=== PATIENT | male | born 1980 | race Caucasian/White ===

== ENCOUNTER 2022-01-23 10:55 | Inpatient (IN) ==
[2022-01-23 11:02] VITALS: BMI 31.8
--- NOTE | 2022-01-23 11:13 | DR.GENAD ---
HPI Time Seen Time Seen by Provider: 01/23/22 11:12 PCP Primary Care Physician: DARIAN ALCALA Complaint/Symptoms Chief Complaint Doctors Comments: 41 y/o male presents for evaluation. Seen here 3 weeks ago and treated as an outpatient for pneumonia. [place] better briefly, but has been ill since. + cough, productive of sputum. + muscle tightening. + w orsening dyspnea. + weakness. Has still been going to work. Symptoms worsened today. Chief Complaint:: PT STATES HE WAS HERE TWO WEEKS AGO AND HAD PNEUMONIA AND HASNT GOTTEN BETTER. PT STATES HIS MUSCLES TENSE UP, PT HAS BEEN COUGHING UP WHITE PHLEGM. Nurses notes reviewed Nurses Notes Review: Yes Source History Provided: Patient Mode of Arrival Mode of Arrival: Ambulatory Timing Onset of Chief Complaint: 01/23/22 PMH PMH Past Medical History: No Past Medical History: Hypertension Past Surgical History: Yes Surgical History: Cholecystectomy Family History History of Family Medical Conditions: No Family Medical History: Diabetes Mellitus and Hypertension Social History Alcohol Use: None Do you use any recreational Drugs:: No Lives With: Alone Lives Where: Home Infectious screening In the last 2 months have you had wt loss of >10#?: NO Have you had fever, night sweats or hemotysis?: No Have you traveled outside the country in the last 6 months?: No Isolation: Standard ROS Review of Systems Constitutional: Chills, Fever and Weakness Eyes: No Symptoms Reported ENTM: No Symptoms Reported Respiratoy: Productive Cough and Short of Breath Cardiovascular: No Symptoms Reported Gastrointestinal/Abdominal: No Symptoms Reported Genitourinary: No Symptoms Reported Neurological: No Symptoms Reported Musculoskeletal: Muscle Pain Integumentary: No Symptoms Reported Hematologic/Lymphatic: No Symptoms Reported Psychiatric: No Symptoms Reported All Other Systems: Reviewed and Negative PE Vital Signs Vitals: Temperature 99.3 F Pulse Rate 102 Respiratory Rate 18 Blood Pressure [Left Arm] 106/55 Blood Pressure 118/68 O2 Sat by Pulse Oximetry 94 General General Appearance: Alert and In No Apparent Distress Head Head Exam: Normal Inspection Eyes Eye exam: PERRL and EOMI ENT ENT Exam: Normal Oropharynx, Mucous Membranes Moist and TM's Normal Bilaterally Neck Neck Exam: Normal Inspection and Full ROM; negative Tenderness Respiratory Respiratory Exam: Normal Lung Sounds Bilat; negative Accessory Muscle Use or Respiratory Distress Cardiovascular Cardiovascular Exam: Regular Rate, Normal Rhythm, Tachycardia and Normal Heart Sounds Abdominal Exam Abdominal Exam: Normal Inspection, Normal Bowel Sounds and Soft; negative Tenderness Extremities Extremities Exam: Normal Inspection and Full ROM Neurologic Neurological Exam: Alert, Oriented X3 and CN II-XII Intact; negative Motor Sensory Deficit Skin Skin Exam: Warm and Dry COURSE Treatment Treatment: 41 y/o male, treated for pneumonia with doxycycline 3 weeks ago, now with worsening cough/dyspnea. + pulse ox in the upper 80's on RA. Better with N/C. W/u initiated. Pt given IV fluids. 1300- CXR with diffuse haziness of RLL, some increased LLL markings. Pt given IV Rocephin to start. WBC not elevated, labs overall acceptable. Will admit for further antibiotic treatment and O2 supplementation. Discussed with Dr Kent, accepts the admission. [facility]OR Labs Reviewed Laboratory Results Reviewed?: Yes Result Diagrams: 01/23/22 11:18 01/23/22 11:18 Laboratory: WBC 9.2 X10^3/uL (3.6-10.0) 01/23/22 11:18 RBC 5.60 X10^6/uL (4.7-6.0) 01/23/22 11:18 Hgb 16.3 g/dL (13.5-18.0) 01/23/22 11:18 Hct 47.2 % (42.0-54.0) 01/23/22 11:18 MCV 84.3 fL (80.0-100.0) 01/23/22 11:18 MCH 29.0 pg (27.0-34.0) 01/23/22 11:18 MCHC 34.4 g/dL (33.0-35.0) 01/23/22 11:18 RDW 13.7 % (11.6-16.5) 01/23/22 11:18 Plt Count 282 X10^3/uL (150.0-450.0) 01/23/22 11:18 MPV 7.9 fL (7.4-11.0) 01/23/22 11:18 Neut % (Auto) 86.3 % (42.0-75.0) H 01/23/22 11:18 Lymph % (Auto) 8.4 % (21.0-51.0) L 01/23/22 11:18 Robeson % (Auto) 4.5 % (0.0-13.0) 01/23/22 11:18 Eos % (Auto) 0.5 % (0.9-2.9) L 01/23/22 11:18 Baso % (Auto) 0.3 % (0.2-1.0) 01/23/22 11:18 Neut # (Auto) 8.0 x10^3/uL (2.2-4.8) H 01/23/22 11:18 Lymph # (Auto) 0.8 X10^3/uL (1.3-2.9) L 01/23/22 11:18 Robeson # (Auto) 0.4 x10^3/uL (0.3-0.8) 01/23/22 11:18 Eos # (Auto) 0.0 x10^3/uL (0.0-0.2) 01/23/22 11:18 Baso # (Auto) 0.0 X10^3/uL (0.0-0.1) 01/23/22 11:18 Absolute Nucleated RBC 0.0 /100WBC 01/23/22 11:18 Sample Site Lrad 01/23/22 11:20 ABG pH 7.420 (7.35-7.45) 01/23/22 11:20 ABG pCO2 45.0 mmHg (35.0-45.0) 01/23/22 11:20 ABG pO2 47.0 mmHg (80.0-100.0) L* 01/23/22 11:20 ABG HCO3 29.2 mmol/L (22-26) H 01/23/22 11:20 ABG O2 Saturation 83.0 % (90-100) L* 01/23/22 11:20 ABG Base Excess 4.1 mmol/L (-2.0-2.0) H 01/23/22 11:20 Tunde Test Pos 01/23/22 11:20 A-a Gradient 46.0 mmHg 01/23/22 11:20 FiO2 21.0 01/23/22 11:20 Blood Gas Comments Pt rafa well elj 01/23/22 11:20 Sodium 137 mmol/L (136-145) 01/23/22 11:18 Corrected Sodium 138 mmol/L (136-145) 01/23/22 11:18 Potassium 4.0 mmol/L (3.5-5.1) 01/23/22 11:18 Chloride 101 mmol/L (98-107) 01/23/22 11:18 Carbon Dioxide 30.3 mmol/L (21-32) 01/23/22 11:18 BUN 19 mg/dL (7-18) H 01/23/22 11:18 Creatinine 0.87 mg/dL (0.70-1.30) 01/23/22 11:18 Est GFR (MDRD) Af Amer > 60 (>60) 01/23/22 11:18 Est GFR (MDRD) Non-Af > 60 (>60) 01/23/22 11:18 Glucose 121 mg/dL (65-99) H 01/23/22 11:18 Lactic Acid 1.6 mmol/L (0.4-2.0) 01/23/22 11:18 Calcium 8.7 mg/dL (8.5-10.1) 01/23/22 11:18 Corrected Calcium TNP 01/23/22 11:18 Total Bilirubin 0.90 mg/dL (0.2-1.0) 01/23/22 11:18 AST 78 Units/L (15-37) H 01/23/22 11:18 ALT 214 Units/L (12-78) H 01/23/22 11:18 Alkaline Phosphatase 142 Units/L (46-116) H 01/23/22 11:18 Total Protein 7.8 g/dL (6.4-8.2) 01/23/22 11:18 Albumin 3.9 g/dL (3.4-5.0) 01/23/22 11:18 Globulin 3.9 g/dL (2.5-4.5) 01/23/22 11:18 Albumin/Globulin Ratio 1.0 Ratio (1.1-2.1) L 01/23/22 11:18 SARS-CoV-2 (PCR) Negative (NEGATIVE) 01/23/22 11:25 Influenza Type A (PCR) Negative (NEGATIVE) 01/23/22 11:25 Influenza Type B (PCR) Negative (NEGATIVE) 01/23/22 11:25 RSV (PCR) Negative (NEGATIVE) 01/23/22 11:25 Labs overall acceptable. XRAY XRAY Interpreted by: Both X-ray Results: + worsening infiltrate of RLL. Opioid Opioid Risk Tool Age (Cyrus box if 16-45): Yes History of Preadolescent Sexual Abuse: No Total: 1 Total Score Risk Category: Low Risk Copyright: Jj DELEON predicting aberrant behaviors Discharge Plan Diagnosis Discharge Problem: RLL pneumonia Discharge Plan Patient Disposition: 09 ADMITTED INPATIENT Condition: Stable Orders to Discharge Patient Discharge Orders: Transfer (Routine); Ordered 01/23/22 Ordered By: Justin Schultz
[2022-01-23] MEDS ORDERED: NS 1,000 ML IV 1,000 ML IV ONE (11:14)
[2022-01-23] MEDS ORDERED: NS 1,000 ML IV 1,000 ML ONE (11:16)
[2022-01-23 11:27] LABS: ABG BASE EXCESS 4.1 mmol/L (-2.0-2.0); ABG HCO3 29.2 mmol/L (22-26)
[2022-01-23 11:28] LABS: ABG ALLEN TEST POS
[2022-01-23 11:42] LABS: BASOPHILS % (AUTO) 0.3 % (0.2-1.0); EOSINOPHILS % (AUTO) 0.5 % (0.9-2.9); HEMATOCRIT 47.2 % (42.0-54.0); HEMOGLOBIN 16.3 g/dL (13.5-18.0); LYMPHOCYTES # (AUTO) 0.8 X10^3/uL (1.3-2.9); LYMPHOCYTES % (AUTO) 8.4 % (21.0-51.0); MEAN CORPUSCULAR HGB CONC 34.4 g/dL (33.0-35.0); MEAN CORPUSCULAR VOLUME 84.3 fL (80.0-100.0); MEAN PLATELET VOLUME 7.9 fL (7.4-11.0); MONOCYTES # (AUTO) 0.4 x10^3/uL (0.3-0.8); MONOCYTES % (AUTO) 4.5 % (0.0-13.0); NEUTROPHILS % (AUTO) 86.3 % (42.0-75.0); RED CELL DISTRIBUTION WIDTH 13.7 % (11.6-16.5); WHITE BLOOD COUNT 9.2 X10^3/uL (3.6-10.0)
[2022-01-23 11:54] LABS: ALANINE AMINOTRANSFERASE 214 Units/L (12-78); ALBUMIN 3.9 g/dL (3.4-5.0); ALKALINE PHOSPHATASE 142 Units/L (46-116); ASPARTATE AMINO TRANSFERASE 78 Units/L (15-37); BLOOD UREA NITROGEN 19 mg/dL (7-18); CALCIUM 8.7 mg/dL (8.5-10.1); CARBON DIOXIDE 30.3 mmol/L (21-32); CHLORIDE 101 mmol/L (98-107); COR NA(FOR HYPERGLY) 138 mmol/L (136-145); CREATININE 0.87 mg/dL (0.70-1.30); SODIUM 137 mmol/L (136-145); TOTAL PROTEIN 7.8 g/dL (6.4-8.2); eGFR NON BLACK RACES > 60 (>60)
[2022-01-23 11:58] LABS: LACTIC ACID 1.6 mmol/L (0.4-2.0)
[2022-01-23] MEDS ORDERED: ROCEPHIN 1 GRAM IV PREMIX 1 G/50 ML IV.SOLN. IV ONE (12:10)
[2022-01-23] MEDS ORDERED: NS 50 ML IV 50 ML IV ONE (12:13)
[2022-01-23] MEDS ORDERED: ROCEPHIN VIAL 1 GRAM ONE (12:13)
--- NOTE | 2022-01-23 12:28 | RAD ---
Chest AP portableIndication: Cough. Comparison recent right lower lung pneumoniaComparison January 02, 2022FINDINGSThere is no pneumothorax. Heart size is prominent. There is dense right lower lung opacity, similar to slightly worsened when compared to the prior. Patchy left lower lung opacity may be developing.IMPRESSIONSimilar to slightly worsened right lower lung opacity suggesting pneumonia. Developing left lung pneumonia not excluded. Follow-up to resolution to exclude underlying lesion.Electronically signed by: MAGALY GONZALES (Jan 23, 2022 12:27:08)
[2022-01-23] MEDS ORDERED: MORPHINE SULFATE INJ 4 MG IVP ONE (12:44)
[2022-01-23] MEDS ORDERED: MORPHINE SULFATE INJ 4 MG ONE (12:56)
[2022-01-23] MEDS: AVELOX IV 400 MG/250 ML BAG 400 MG/250 ML PIGGYBACK IV SCH (15:15)
[2022-01-23] MEDS: NEURONTIN CAP 300 MG PO SCH ×2 (15:15→21:23)
[2022-01-23] MEDS: ZOSYN VIAL 3.375 GRAMS 3.375 G in NS 100 ML IV 100 ML IV SCH ×2 (15:15→21:25)
[2022-01-23] MEDS ORDERED: TORADOL 60 MG VIAL IM ONE (15:28)
[2022-01-23] MEDS ORDERED: SALINE 3% 15 ML NEB TX NEB ONE (16:12)
[2022-01-23] MEDS ORDERED: SALINE 3% 15 ML NEB TX ONE (16:27)
[2022-01-23] MEDS ORDERED: DUONEB 0.5 MG/3 MG (3 mL) NEB ONE (16:27)
[2022-01-23] MEDS ORDERED: DUONEB 0.5 MG/3 MG (3 mL) NEB SCH (17:00)
[2022-01-23] MEDS: DUONEB 0.5 MG/3 MG (3 mL) NEB SCH ×2 (17:16→20:20)
[2022-01-23] MEDS: NORCO 5/325 MG TAB PO PRN (17:59)
[2022-01-23] MEDS ORDERED: PULMICORT NEB TX 0.5 MG NEB ONE (19:34)
[2022-01-23] MEDS: PULMICORT NEB TX 0.5 MG NEB SCH (20:20)
[2022-01-23] MEDS: COLACE CAP 100 MG PO PRN (21:21)
[2022-01-23] MEDS ORDERED: TORADOL 15 MG VIAL IVP PRN (22:00)
[2022-01-24] MEDS: NEURONTIN CAP 300 MG PO SCH ×3 (05:14→21:00)
[2022-01-24] MEDS: ZOSYN VIAL 3.375 GRAMS 3.375 G in NS 100 ML IV 100 ML IV SCH ×3 (05:14→21:00)
[2022-01-24 06:09] LABS: BASOPHILS % (AUTO) 0.6 % (0.2-1.0); EOSINOPHILS # (AUTO) 0.1 x10^3/uL (0.0-0.2); EOSINOPHILS % (AUTO) 1.9 % (0.9-2.9); HEMATOCRIT 36.8 % (42.0-54.0); LYMPHOCYTES # (AUTO) 2.1 X10^3/uL (1.3-2.9); LYMPHOCYTES % (AUTO) 29.3 % (21.0-51.0); MEAN CORPUSCULAR HEMOGLOBIN 28.5 pg (27.0-34.0); MEAN CORPUSCULAR HGB CONC 34.1 g/dL (33.0-35.0); MEAN CORPUSCULAR VOLUME 83.6 fL (80.0-100.0); MEAN PLATELET VOLUME 7.6 fL (7.4-11.0); MONOCYTES # (AUTO) 0.5 x10^3/uL (0.3-0.8); MONOCYTES % (AUTO) 6.5 % (0.0-13.0); NEUTROPHILS # (AUTO) 4.4 x10^3/uL (2.2-4.8); NEUTROPHILS % (AUTO) 61.7 % (42.0-75.0); WHITE BLOOD COUNT 7.1 X10^3/uL (3.6-10.0)
[2022-01-24 06:12] LABS: HEMOGLOBIN 12.6 g/dL (13.5-18.0)
[2022-01-24 06:19] LABS: ALANINE AMINOTRANSFERASE 236 Units/L (12-78); ALBUMIN 2.9 g/dL (3.4-5.0); ALKALINE PHOSPHATASE 109 Units/L (46-116); ASPARTATE AMINO TRANSFERASE 79 Units/L (15-37); BLOOD UREA NITROGEN 14 mg/dL (7-18); CALCIUM 8.1 mg/dL (8.5-10.1); CARBON DIOXIDE 27.1 mmol/L (21-32); CHLORIDE 106 mmol/L (98-107); CREATININE 0.81 mg/dL (0.70-1.30); SODIUM 140 mmol/L (136-145); TOTAL PROTEIN 5.9 g/dL (6.4-8.2); eGFR NON BLACK RACES > 60 (>60)
[2022-01-24] MEDS: NORCO 5/325 MG TAB PO PRN ×2 (07:50→18:19)
[2022-01-24] MEDS: PULMICORT NEB TX 0.5 MG NEB SCH ×2 (09:20→20:38)
[2022-01-24] MEDS: DUONEB 0.5 MG/3 MG (3 mL) NEB SCH ×4 (09:20→20:38)
[2022-01-24] MEDS ORDERED: NS 100 ML IV 100 ML ONE (09:24)
[2022-01-24] MEDS: AVELOX IV 400 MG/250 ML BAG 400 MG/250 ML PIGGYBACK IV SCH (09:37)
[2022-01-24] MEDS: CELEXA PO SCH (09:38)
[2022-01-24] MEDS ORDERED: K-RIDER 10 MEQ/NS 100 ML 10 MEQ/100 ML BAG IV PRN (14:12)
[2022-01-24] MEDS ORDERED: POTASSIUM CHL 40 MEQ/NS 0.45% 500 ML IV PRN (14:12)
[2022-01-24] MEDS ORDERED: MICRO K EXTEN CAP 10 MEQ PO PRN (14:12)
[2022-01-24] MEDS ORDERED: POTASSIUM CHLORIDE LIQ 20 MEQ UDC PO PRN (14:12)
[2022-01-24] MEDS ORDERED: KLOR-CON PO PRN (14:12)
[2022-01-24] MEDS ORDERED: POTASSIUM CHL 60 MEQ/NS 0.45% 500 ML IV PRN (14:12)
[2022-01-24] MEDS ORDERED: MAGNESIUM SULFATE 1 GRAM/100 mL PREMIX 1 G/100 ML BAG IV PRN (14:13)
[2022-01-24] MEDS: K-DUR TAB 20 MEQ PO PRN (14:48)
[2022-01-24] MEDS: COLACE CAP 100 MG PO PRN (20:52)
[2022-01-25] MEDS ORDERED: MILK OF MAGNESIA PO PRN (03:18)
[2022-01-25] MEDS: ZOSYN VIAL 3.375 GRAMS 3.375 G in NS 100 ML IV 100 ML IV SCH ×3 (05:33→20:59)
[2022-01-25] MEDS: NEURONTIN CAP 300 MG PO SCH ×3 (05:34→20:59)
[2022-01-25] MEDS: NORCO 5/325 MG TAB PO PRN ×2 (05:42→15:13)
[2022-01-25 05:54] LABS: BASOPHILS % (AUTO) 0.3 % (0.2-1.0); EOSINOPHILS # (AUTO) 0.1 x10^3/uL (0.0-0.2); EOSINOPHILS % (AUTO) 0.7 % (0.9-2.9); HEMATOCRIT 38.3 % (42.0-54.0); HEMOGLOBIN 12.8 g/dL (13.5-18.0); LYMPHOCYTES # (AUTO) 1.5 X10^3/uL (1.3-2.9); LYMPHOCYTES % (AUTO) 12.4 % (21.0-51.0); MEAN CORPUSCULAR HEMOGLOBIN 28.1 pg (27.0-34.0); MEAN CORPUSCULAR HGB CONC 33.4 g/dL (33.0-35.0); MEAN CORPUSCULAR VOLUME 84.3 fL (80.0-100.0); MEAN PLATELET VOLUME 7.7 fL (7.4-11.0); MONOCYTES # (AUTO) 1.1 x10^3/uL (0.3-0.8); MONOCYTES % (AUTO) 9.1 % (0.0-13.0); NEUTROPHILS # (AUTO) 9.1 x10^3/uL (2.2-4.8); NEUTROPHILS % (AUTO) 77.5 % (42.0-75.0); RED BLOOD COUNT 4.55 X10^6/uL (4.7-6.0); WHITE BLOOD COUNT 11.7 X10^3/uL (3.6-10.0)
[2022-01-25 06:10] LABS: ALANINE AMINOTRANSFERASE 169 Units/L (12-78); ALKALINE PHOSPHATASE 106 Units/L (46-116); ASPARTATE AMINO TRANSFERASE 33 Units/L (15-37); BLOOD UREA NITROGEN 12 mg/dL (7-18); CALCIUM 7.9 mg/dL (8.5-10.1); CARBON DIOXIDE 26.6 mmol/L (21-32); CHLORIDE 105 mmol/L (98-107); COR CA(FOR HYPOALB) 8.7 mg/dL (8.5-10.1); COR NA(FOR HYPERGLY) 138 mmol/L (136-145); CREATININE 0.86 mg/dL (0.70-1.30); SODIUM 137 mmol/L (136-145); TOTAL PROTEIN 6.6 g/dL (6.4-8.2); eGFR NON BLACK RACES > 60 (>60)
[2022-01-25] MEDS: K-DUR TAB 20 MEQ PO PRN (06:42)
[2022-01-25] MEDS: PULMICORT NEB TX 0.5 MG NEB SCH ×2 (08:30→21:05)
[2022-01-25] MEDS: DUONEB 0.5 MG/3 MG (3 mL) NEB SCH ×4 (08:30→21:05)
[2022-01-25] MEDS: CELEXA PO SCH (08:42)
[2022-01-25] MEDS ORDERED: LINZESS PO ONE (09:22)
[2022-01-25] MEDS: AVELOX IV 400 MG/250 ML BAG 400 MG/250 ML PIGGYBACK IV SCH (10:00)
[2022-01-25] MEDS ORDERED: LINZESS PO NR (16:00)
[2022-01-26] MEDS: NORCO 5/325 MG TAB PO PRN ×2 (00:23→10:08)
[2022-01-26] MEDS: NEURONTIN CAP 300 MG PO SCH (05:38)
[2022-01-26] MEDS: ZOSYN VIAL 3.375 GRAMS 3.375 G in NS 100 ML IV 100 ML IV SCH (05:39)
[2022-01-26 08:16] VITALS: BP 118/65
[2022-01-26] MEDS: PULMICORT NEB TX 0.5 MG NEB SCH (08:24)
[2022-01-26] MEDS: DUONEB 0.5 MG/3 MG (3 mL) NEB SCH (08:24)
[2022-01-26] MEDS: CELEXA PO SCH (09:05)
[2022-01-26] MEDS: K-DUR TAB 20 MEQ PO PRN (09:06)
[2022-01-26] MEDS: AVELOX IV 400 MG/250 ML BAG 400 MG/250 ML PIGGYBACK IV SCH (09:07)
[2022-01-26] MEDS ORDERED: VSL#3 PO SCH (09:15)
== END 2022-01-26 10:00 | disposition home or self-care (01) | DRG 195 ==
LOC: ER 10:55 → MED/SURG 13:24
PROVIDERS: ADMIT Obstetrics & Gynecology Obstetrics; ATTEND Obstetrics & Gynecology Obstetrics
DX: E86.0 Dehydration; Z20.822 Contact with and (suspected) exposure to COVID-19; K59.09 Other constipation; J18.8 Other pneumonia, unspecified organism